=== PATIENT | female | born 1985 | race Caucasian/White ===

== ENCOUNTER 2021-11-28 08:16 | Inpatient (IN) | payer OTHER, SELFPAY ==
[~2021-11-28] VITALS: Ht 157.5 cm; Wt 79.4 kg
[2021-11-28] MEDS ORDERED: PRETAB PO (08:38)
[2021-11-28] MEDS ORDERED: PROMETHAZINE 25 MG/ML VIAL IVP PRN (08:40)
[2021-11-28] MEDS ORDERED: METHYLERGONOVINE 0.2 MG/ML AMP IM PRN ×2 (08:40→18:05)
[2021-11-28] MEDS ORDERED: NALBUPHINE 10 MG/ML AMP IVP PRN (08:40)
[2021-11-28] MEDS ORDERED: CARBOPROST 250 MCG/ML AMP IM PRN (08:40)
[2021-11-28] MEDS ORDERED: MISOPROSTOL 25 MCG TAB ONE (09:53)
[2021-11-28] MEDS ORDERED: OXYTOCIN 20 UNITS in LACTATED RINGERS 1,000 ML IV SCH (09:55)
[2021-11-28] MEDS: LACTATED RINGERS 1,000 ML IV SCH ×3 (10:07→14:00)
[2021-11-28 10:53] LABS: APPEARANCE,URINE CLEAR (CLEAR); BILIRUBIN,URINE NEGATIVE (NEGATIVE); BLOOD, URINE NEGATIVE (NEGATIVE); COLOR,URINE YELLOW (YELLOW); LEUKOCYTE ESTERASE ,URINE NEGATIVE (NEGATIVE); NITRITE, URINE POSITIVE (NEGATIVE); UGLUCOSE NEGATIVE (NEGATIVE)
[2021-11-28 11:04] LABS: BASOPHILS % (AUTO) 0.8 % (0.0-2.0); EOSINOPHILS % (AUTO) 0.9 % (0.0-4.0); HEMATOCRIT 33.9 % (36-48); HEMOGLOBIN 11.8 g/dL (12.0-16.0); LYMPHOCYTES # (AUTO) 1.2 K/uL (2.5-16.5); LYMPHOCYTES % (AUTO) 20.5 % (20.5-51.1); MEAN CORPUSCULAR HEMOGLOBIN 35 pg (27-31); MEAN CORPUSCULAR HGB CONC 35 g/dL (33-37); MEAN CORPUSCULAR VOLUME 99.9 fL (80-94); MONOCYTES # (AUTO) 0.4 K/uL (0.8-1.0); NEUTROPHILS % (AUTO) 70.8 % (42.2-75.2); PLATELET COUNT (AUTO) 196 K/uL (140-450); RED BLOOD CELL COUNT(AUTO) 3.39 MIL/uL (4.20-5.40); RED CELL DISTRIBUTION WIDTH 13.7 % (11.6-13.7); WHITE BLOOD COUNT (AUTO) 5.7 K/uL (4.8-10.8)
[2021-11-28 11:04] LABS: RBC,URINE NONE SEEN /HPF (0-5); WBC,URINE 0-5 /HPF (0-5)
[2021-11-28 11:06] VITALS: BP 119/68
[2021-11-28 11:18] LABS: ALBUMIN 2.2 g/dL (3.4-5.0); ANION GAP 17.3 (8-16); CARBON DIOXIDE 22.8 mmol/L (21-32); CREATININE 0.7 mg/dL (0.6-1.3); POTASSIUM 4.1 mmol/L (3.5-5.1); TOTAL BILIRUBIN 0.2 mg/dL (0.0-1.0)
[2021-11-28] MEDS ORDERED: MISOPROSTOL 25 MCG TAB VG PRN (12:00)
[2021-11-28] MEDS ORDERED: ROPIVACAINE 0.2%/NS PREMIX 200 ML EPI ONE (12:39)
--- NOTE | 2021-11-28 16:15 | NUR ---
PATIENT HAS BEEN SCREENED AND CATEGORIZED LOW NUTRITION RISK. PATIENT WILL BE SEEN WITHIN 7 DAYS OF ADMISSION. 12/04/[address]
[2021-11-28] MEDS ORDERED: OXYTOCIN 20 UNITS/LR PREMIX 1,000 ML IV ONE (17:47)
[2021-11-28] MEDS ORDERED: BENZOCAINE/MENTHOL 20%-0.5% 60 GM CAN TP PRN (18:05)
[2021-11-28] MEDS ORDERED: TEMAZEPAM 15 MG CAP PO PRN (18:05)
[2021-11-28] MEDS ORDERED: MEASLES, MUMPS, AND RUBELLA 1 VIAL SQVAC ONE (18:05)
[2021-11-28] MEDS ORDERED: METHYLERGONOVINE 0.2 MG TAB PO PRN (18:05)
[2021-11-28] MEDS ORDERED: OXYTOCIN 10 UNITS/ML VIAL IM PRN (18:05)
[2021-11-28] MEDS ORDERED: MEASLES, MUMPS, AND RUBELLA 1 VIAL SQVAC SCH (18:15)
[2021-11-28] MEDS: IBUPROFEN 800 MG TAB PO PRN (20:11)
[2021-11-28] MEDS ORDERED: DOCUSATE SOD/SENNA 50/8.6 MG 1 TAB PO SCH (21:00)
[2021-11-28] MEDS: oxyCODONE/APAP 5/325 MG 1 TAB TAB PO PRN (23:52)
[2021-11-29 06:29] LABS: HEMATOCRIT 31.6 % (36-48); HEMOGLOBIN 11.1 g/dL (12.0-16.0)
[2021-11-29] MEDS: oxyCODONE/APAP 5/325 MG 1 TAB TAB PO PRN ×2 (09:48→15:17)
[2021-11-30] MEDS: oxyCODONE/APAP 5/325 MG 1 TAB TAB PO PRN (03:35)
[2021-11-30] MEDS: IBUPROFEN 800 MG TAB PO PRN (11:34)
== END 2021-11-30 12:25 | disposition home or self-care (01) | DRG 560 ==
LOC: MLD 08:16 → MFCC 08:26
PROVIDERS: ADMIT Obstetrics & Gynecology; ATTEND Obstetrics & Gynecology
PROC: 10E0XZZ Delivery of Products of Conception, External Approach (ICD-10-PCS; principal; 2021-11-28)
PROC: 0HQ9XZZ Repair Perineum Skin, External Approach (ICD-10-PCS; 2021-11-28)
PROC: 3E0R3BZ Introduction of Anesthetic Agent into Spinal Canal, Percutaneous Approach (ICD-10-PCS; 2021-11-28)
PROC: 00HU33Z Insertion of Infusion Device into Spinal Canal, Percutaneous Approach (ICD-10-PCS; 2021-11-28)
PROC: 3E0DXGC Introduction of Other Therapeutic Substance into Mouth and Pharynx, External Approach (ICD-10-PCS; 2021-11-28)
DX: O48.0 Post-term pregnancy (principal); Z37.0 Single live birth; O70.0 First degree perineal laceration during delivery; Z20.822 Contact with and (suspected) exposure to COVID-19; Z3A.40 40 weeks gestation of pregnancy
CPT/HCPCS: 36415; 51702; 59200; 80053; 81001; 85018; 85025; 86592; 86886; 86900; 86901; 87086; J2210; J2590; J2795